=== PATIENT | male | born 1960 | race Caucasian/White ===

== ENCOUNTER 2018-07-17 16:56 | Emergency (ER) | payer MEDICARE ==
[2018-07-17 17:31] VITALS: BP 132/91
[2018-07-17] MEDS ORDERED: Bupivacaine 0.25% SDV* 30 ML INJ ONE ×2 (18:03→18:12)
[2018-07-17] MEDS ORDERED: Tetan/Diph/Pertus SYR(Tdap)* 0.5 ML SYR(BOOSTRIX) use SYR IM ONE (18:05)
--- NOTE | 2018-07-17 18:11 | ED ---
Skin Complaint - HPI Summary HPI Summary: 57 yo WM p/w left thumb laceration, tip of thumb cut off and hanging while cutting an onion. Last Tdap vaccination in 2006 - History of Current Complaint Chief Complaint: UCUpperExtremity Time Seen by Provider: 07/17/18 18:00 Stated Complaint: FINGER LAC Hx Obtained From: Patient Skin Exposure Onset/Duration: Days Ago Timing: Constant Onset Severity: Severe Current Severity: Moderate Pain Intensity: 7 - Allergy/Home Medications Allergies/Adverse Reactions: Allergies Allergy/AdvReac Type Severity Reaction Status Date / Time No Known Allergies Allergy Verified 07/17/18 17:31 Home Medications: Home Medications Amlodipine Besylate [Norvasc] 5 mg PO DAILY 07/17/18 [History Confirmed 07/17/18 ] fentaNYL [Fentanyl] 1 patch TOPICAL DAILY 07/17/18 [History Confirmed 07/17/18] PMH/Surg Hx/FS Hx/Imm Hx Previously Healthy: Yes Endocrine/Hematology History: Denies: Hx Diabetes, Hx Thyroid Disease Cardiovascular History: Reports: Hx Hypertension Denies: Hx Congestive Heart Failure Respiratory History: Reports: Other Respiratory Problems/Disorders - SOB Denies: Hx Asthma, Hx Chronic Obstructive Pulmonary Disease (COPD) GI History: Denies: Hx Ulcer Musculoskeletal History: Denies: Hx Scoliosis Neurological History: Denies: Hx Headaches, Other Neuro Impairments/Disorders - Surgical History Surgery Procedure, Year, and Place: hand surgery - Immunization History Date of Tetanus Vaccine: up tp date per mom Infectious Disease History: No Infectious Disease History: Denies: Hx Hepatitis, Hx Human Immunodeficiency Virus (HIV), Traveled Outside the [place] in Last 30 Days - Family History Known Family History: Positive: None Family History: no cardio vascular issues in family lineage - Social History Alcohol Use: Rare Substance Use Type: Reports: None Smoking Status (MU): Never Smoked Tobacco Review of Systems - ROS Summary Review of Systems Summary: Constitutional: Negative Eyes: Negative ENT: Negative Cardiovascular: Negative Respiratory: Negative Gastrointestinal: Negative Musculoskeletal: Negative Skin: see HPI Neurological: Negative Psychological: Normal All Other Systems Reviewed And Are Negative: Yes Physical Exam - Summary Physical Exam Summary: Vital Signs Reviewed: Yes Appearance: Positive: No Pain Distress Skin: Positive: 1.5cm "C" shaped lacerated tip of left thumb x 5mm thick flesh hanging off left tip of thumb, subcut tissue exposed, wound is clean but blood mildly oozing Head/Face: Positive: Normal Head/Face Inspection Eyes: Positive: Normal ENT: Positive: Normal ENT inspection Neck: Positive: Supple Respiratory/Lung Sounds: Positive: Clear to Auscultation Cardiovascular: Positive: Normal, RRR, S1, S2 Abdomen Description: Positive: Nontender Musculoskeletal: Positive: Normal Neurological: Positive: CN Intact II-III Psychiatric: Positive: Normal Triage Information Reviewed: Yes Vital Signs On Initial Exam: Initial Vitals Temp Pulse Resp BP Pulse Ox 36.6 C 78 12 132/91 97 07/17/18 17:24 07/17/18 17:24 07/17/18 17:24 07/17/18 17:24 07/17/18 17:24 Procedures - Laceration/Wound Repair 1 Location: Other - Left thumb Length, Depth and Shape: 1.5cm Betadine Prep?: No - saline irrgation Irrigated w/ Saline (ccs): 10 Laceration/Wound Explored: clean, no foreign body removed Closure: Skin Adhesive, Single Layer Debridement: minimal Suture Type: Nylon Number of Sutures: 5 Layer Closure?: No Diagnostics - Vital Signs Vital Signs Temp Pulse Resp BP Pulse Ox 07/17/18 17:24 36.6 C 78 12 132/91 97 - Laboratory Lab Statement: Any lab studies that have been ordered have been reviewed, and results considered in the medical decision making process. Course/Dx - Diagnoses Provider Diagnoses: Thumb laceration Discharge - Sign-Out/Discharge Documenting (check all that apply): Patient Departure All imaging exams completed and their final reports reviewed: Yes - Discharge Plan Condition: Stable Disposition: HOME Prescriptions: Cephalexin CAP* [Keflex CAP*] 500 mg PO TID 7 Days #21 cap Patient Education Materials: Care For Your Stitches (ED), Finger Laceration (ED ) Referrals: Fadi Sam DO [Primary Care Provider] - Additional Instructions: please return for a wound check to your PCP or to urgent care in 2 days - Billing Disposition and Condition Condition: STABLE Disposition: Home
[2018-07-17] MEDS ORDERED: Bupivacaine 0.25% SDV PF* 10 ML VIAL INJ ONE (18:17)
== END 2018-07-17 18:58 | disposition home or self-care (01) ==
LOC: UCEAST 16:56
DX: S61.012A Laceration without foreign body of left thumb without damage to nail, initial encounter (principal); Z23 Encounter for immunization; W26.0XXA Contact with knife, initial encounter; I10 Essential (primary) hypertension; Z79.899 Other long term (current) drug therapy
CPT/HCPCS: 12001; 90715; 99212; G0463; J3490